=== PATIENT | male | born 1955 | race Caucasian/White ===

== ENCOUNTER → 2017-05-11 | Outpatient (CLI) | payer MEDICARE, OTHER ==
[~2017-05-11] MED LIST: 24HOUR ALLERGY10 MG; 24HOUR ALLERGY10 MG PO; ABILIFY2 MG PO; ALB/IPRATROPIUM/1 E1 INH; ALPRAZOLAM1 MG PO; AMLODIPINE BESYL5 MG PO; ASPIRIN81 M1 PO; ASPIRIN81 M2 PO; ASPIRINBUFF PO; ATARAX PO; CARDIZEM SR PO; CARTIA XT240 MG PO; CARVEDILOL3.125 MG PO; CELEXA PO; CIPRO PO; CITALOPRAM HBR40 MG PO; CLARITIN10 M3 PO; COREG3.125 MG PO; COREG6.25 MG PO; COUMADIN PO; CYCLOBENZAPRINE5 MG PO; DULOXETINE HCL20 MG PO; FENOFIBRATE67 MG PO; FLAGYL PO; HYDROCHLOROTHIA25 MG PO; HYDROCODONE-A1 UDTA4 PO; IMDUR-ER30 MG PO; IMDUR-ER60 MG PO; IMDUR30 MG PO; ISORDIL PO; ISOSORBIDE DINI30 MG PO; LEVAQUIN PO; LEXAPRO20 MG PO; LIPITOR20 MG PO; LISINOPRIL20 MG PO; LISINOPRIL30 MG PO; LORAZEPAM1 MG PO; LORTAB 10-3251 EACH PO; LORTAB 10-5001 EACH PO; LORTAB 7.5-3251 EACH PO; LORTAB 7.5-5001 TAB PO; MOTION SICKNESS25 M4 PO; NEURONTIN300 MG PO; NICOTINE TRANSD14 MG EXT; NITROGYLCERIN SUBLINGUAL; NORCO 7.5-3251 EACH PO; NORCO1 TAB 10/3 PO; NORVASC PO; ONDANSETRON HCL4 M1 PO; PAIN RELIEF325 MG PO; PLAVIX PO; PREDNISONE PO; PROTONIX PO; RANEXA500 MG PO; RANITIDINE HCL150 M1 PO; SINGULAIR PO; SPIRIVA18 MCG INH; SYMBICORT INH; VICODIN PO; XANAX1 MG PO; ZANTAC150 M1 PO; ZANTAC150 MG PO; ZESTRIL40 MG PO; ZOCOR PO
--- NOTE | ~2017-05-11 | EKG ---
PATIENT: FOZIA COTA UNIT #: [id number] Ventricular Rate: 68 BPM Atrial Rate: 68 BPM P-R Interval: 188 ms QRS Duration: 96 ms Q-T Interval: 376 ms QTC Calculation(Bezet): 399 ms P [place]: 41 degrees Calculated R [place]: -18 degrees Calculated T [place]: 61 degrees Diagnosis Line: Normal sinus rhythm Diagnosis Line: Normal ECG Diagnosis Line: When compared with ECG of 07-OCT-2016 17:44, Diagnosis Line: Premature supraventricular complexes are no longer Diagnosis Line: Present Diagnosis Line: Diagnosis Line: Confirmed by AIMEE DEL RIO MD ([id number]) on Diagnosis Line: 05/11/2017 10:10:46 PM INTERPRETING MD: JUSTUS
[2017-05-11 11:46] LABS: HEMATOCRIT 44.7 % (38.0-50.0); HEMOGLOBIN 14.4 gm/dL (13.0-16.0); MEAN CELL VOLUME 87.3 FL (83-96); MEAN CORPUSCULAR HEMOGLOBIN 28.2 PG (28-34); MEAN CORPUSCULAR HGB CONC 32.3 g/dL (30-36); MEAN PLATELET VOLUME 8.9 FL (6.5-11.5); RED BLOOD COUNT 5.12 X10e (3.90-5.60); RED CELL DISTRIBUTION WIDTH 15.7 % (11.0-15.5)
[2017-05-11 12:12] LABS: ALBUMIN SERUM 3.8 g/dL (3.5-5.0); BILIRUBIN,TOTAL 0.4 mg/dL (0.2-2.0); BUN/CREATININE RATIO 21.42; CALCIUM SERUM 9.1 mg/dL (8.4-10.2); CREATININE SERUM 0.7 mg/dL (0.6-1.4); GLOM FILT RATE Estimated 103.3 mL/min (>60); POTASSIUM 4.4 mmol/L (3.5-5.1); PROTEIN TOTAL SERUM 7.1 g/dL (6.0-8.3)
== END | disposition home or self-care (01) ==
LOC: CAMB 10:11 → EDSTATUS 15:00
PROVIDERS: Surgery
DX: Z01.818 Encounter for other preprocedural examination (principal); K43.9 Ventral hernia without obstruction or gangrene
CPT/HCPCS: 36415; 80053; 85027; 93005

== ENCOUNTER 2017-05-18 07:12 | Day surgery (SDC) | payer MEDICARE, OTHER | END 2017-05-18 12:39 | disposition home or self-care (01) | LOC: CSUR 07:12 → CPACUOF 10:03 → CSUR 10:03 | DX: K43.0 Incisional hernia with obstruction, without gangrene (principal); J44.9 Chronic obstructive pulmonary disease, unspecified; I10 Essential (primary) hypertension; M19.90 Unspecified osteoarthritis, unspecified site; M06.9 Rheumatoid arthritis, unspecified; E78.00 Pure hypercholesterolemia, unspecified; G47.30 Sleep apnea, unspecified; K21.9 Gastro-esophageal reflux disease without esophagitis; I25.2 Old myocardial infarction; F17.200 Nicotine dependence, unspecified, uncomplicated | CPT/HCPCS: C1781; J0131; J0330; J0690; J1170; J1885; J2250; J2405; J2710; J3010 ==

== ENCOUNTER 2017-05-19 13:13 | Inpatient (IN) | payer MEDICARE, OTHER ==
--- NOTE | ~2017-05-19 | CT2 ---
[facility] A Service of [facility] RADIOLOGY TEXT RESULTS PATIENT: FOZIA COTA LOCATION: [facility]04-23 : 59 UNIT #: [id number] AGE: [address]: Nilson Friend MD SEX: M ORDER DR: [id number] [facility] [address] [facility]. [place], [place] [address] [id number] I MR#: [id number] Acc #: [id number] NAME: FOZIA COTA. : 1955 SEX: M STUDY DATE/TIME: 05/19/2017 16:34 UNIT: [facility] ROOM: [facility] STUDY DESCRIPTION: CT Abd and Pelv W Cont Attending Physician: Nilson Friend Jr., M.D. Ordering Physician: Carol Oneal M.D. Primary Care Physician: Nolan Pace M.D. MEDICAL IMAGING REPORT This report is preliminary unless electronic signature is present EXAM CT abdomen and pelvis INDICATION Abdominal surgery, status post mesh placement. Cough. Fever. Severe abdominal pain for [address] of the abdomen and pelvis with 100 mL Isovue-370 IV contrast. Coronal and sagittal reconstructions were obtained. This CT exam was performed with one or more of the following radiation dose reduction techniques: automatic exposure control, adjustment of mA and/or kV according to patient size, and iterative reconstruction. COMPARISON CT abdomen and pelvis 01/14/2016. FINDINGS ABDOMEN: There is atelectasis in both lung bases. There is a large hiatal hernia containing majority the gastric fundus. This is unchanged. The solid abdominal organs have not significantly changed. There are a few benign renal cysts. The bowel is not dilated. The appendix is normal. There has been prior anterior abdominal wall hernia repair. There is some gas and intermediate density fluid within the superficial soft tissues not unexpected given the recent surgery. There is some diastasis of the rectus abdominis muscles, unchanged. Patient is status post right iliofemoral bypass graft. Bypass graft is [facility] A Service of [facility] RADIOLOGY TEXT RESULTS PATIENT: FOZIA COTA LOCATION: [facility]04-23 : [birth year] UNIT #: [id number] AGE: [address]: Nilson Friend MD SEX: M ORDER DR: patent. PELVIS: The bladder is significantly distended measuring up to 20 cm in length. This extends up near the umbilicus. Correlate for evidence of bladder outlet obstruction. No acute osseous abnormalities. 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 No femoral head collapse. IMPRESSION 1. Distended urinary bladder. Correlate for any evidence of a bladder outlet obstruction. 2. Air and fluid within the anterior abdominal wall. This is not unexpected given the recent abdominal wall surgery. 3. Atelectasis in both lung bases. Large hiatal hernia containing a majority of the gastric fundus is unchanged from the prior study. Dictated by... Ramon Turcios M.D. THIS IS AN ELECTRONICALLY VERIFIED REPORT Ramon Turcios M.D. at 05/20/2017 8:42 AM PAMELLA/milton TD: 05/20/2017 00:21 JOB #: [id number] MEDICAL IMAGING REPORT Page 1 of 1 COPY
--- NOTE | ~2017-05-19 | OR ---
Unit #: [id number] #: [id number] Patient: FOZIA COTA [id number] [address] [address] [id number] Kalina MR#: [id number] NAME: FOZIA COTA ROOM: 476 Date of Procedure: 05/18/2017 Admission Date: 05/19/2017 Surgeon: Alberto Torrez M.D. : 1955 Attending Physician: Nilson Friend Jr., M.D. Primary Care Physician: Nolan Pace M.D. OPERATIVE REPORT PREOPERATIVE DIAGNOSIS Incarcerated recurrent incisional hernia. POSTOPERATIVE DIAGNOSIS Incarcerated recurrent incisional hernia. PROCEDURE PERFORMED Laparoscopic ventral hernia repair of recurrent incarcerated incisional hernia with 8 x 10 Ventralight mesh. INFORMATION ASSURANCE ANALYST Tanvir Weller M.D. ANESTHESIA General endotracheal anesthesia. ESTIMATED BLOOD LOSS Minimal. IV FLUIDS 800 crystalloid. COMPLICATIONS None. INDICATIONS FOR PROCEDURE The patient is a 61-year-old gentleman with recurrent hernia. DESCRIPTION OF PROCEDURE The patient was taken to the operating theater and placed in supine position. General anesthesia was induced. The abdomen was prepped and draped. A 5-mm Optiview was placed into the right upper quadrant without difficulty. The abdomen was insufflated to 15 mmHg with CO2. Under direct vision, I placed a right lower quadrant 12 mm, left upper quadrant 5 mm, left lower quadrant 5 mm. General inspection of the abdomen revealed incarcerated hernia with multiple defects. This was reduced using a combination of blunt and sharp dissection. The defect had multiple areas of hernia. The entire hernia measuring at least 20 cm x 10 cm. I placed an 8 x 10 inch Ventralight mesh. This was held in place with single-stranded Vicryl sutures. This was then secured with a SorbaFix Tacker in circumferential pattern. This covered the defect by at least 5 cm in all circumference. Hemostasis was adequate. I removed the Unit #: [id number] #: [id number] Patient: FOZIA COTA ports under direct vision and closed the wounds with 4-0 Vicryl and cut the sutures at the skin level. The patient tolerated the procedure well sent to recovery room in good condition. Dictated by... Melba Azevedo/lara TD: 05/18/2017 20:42 JOB #: [id number] OPERATIVE REPORT Page 1 of 1 X Alberto Torrez MD PROCEDURE OPERATIVE NOTE
--- NOTE | ~2017-05-19 | CR72 ---
[facility] A Service of [facility] RADIOLOGY TEXT RESULTS PATIENT: FOZIA COTA LOCATION: [place] [address]- : [birth year] UNIT #: [id number] AGE: [address]: Nilson Friend MD SEX: M ORDER DR: [id number] [facility] [address] [facility]. [place], [place] [address] [id number] I MR#: [id number] Acc #: [id number] NAME: FOZIA COTA. : 1955 SEX: M STUDY DATE/TIME: 05/19/2017 14:54 UNIT: [facility] ROOM: [facility] STUDY DESCRIPTION: CR Chest Single View Portable Attending Physician: Nilson Friend Jr., M.D. Ordering Physician: Carol Oneal M.D. Primary Care Physician: Nolan Pace M.D. MEDICAL IMAGING REPORT This report is preliminary unless electronic signature is present EXAM Portable chest x-ray 05/19/2017 HISTORY Short of air. Fever. Duration since yesterday. Status post abdominal surgery. Short of air. Vomiting blood. TECHNIQUE AP left anterior oblique view of chest presented. COMPARISON STUDIES 04/28/2016. FINDINGS No acute-appearing bony abnormality. Mild cardiac enlargement, probably unchanged given obliquity. Lung volumes moderate. Right lung clear. Airspace disease at the left lung base concerning for pneumonia given the patient's stated history. Given history of hematemesis, consider possible aspiration. Some band-like densities at the left lung base, more likely atelectatic in nature. No definite pleural effusion and no pneumothorax. Followup to complete radiographic resolution is recommended. Dictated by... Alberto Guerin M.D. THIS IS AN ELECTRONICALLY VERIFIED REPORT Alberto Guerin M.D. at 05/20/2017 12:11 PM BILLY/javier TD: 05/19/2017 22:40 JOB #: [id number] [facility] A Service of [facility] RADIOLOGY TEXT RESULTS PATIENT: FOZIA COTA LOCATION: [facility] 476-01 : [birth year] UNIT #: [id number] AGE: [address]: Nilson Friend MD SEX: M ORDER DR: MEDICAL IMAGING REPORT Page 1 of 1 COPY
--- NOTE | ~2017-05-19 | DS ---
Unit #: [id number] #: [id number] Patient: FOZIA COTA [id number] [address] [address] [id number] I MR#: [id number] NAME: FOZIA COTA ROOM: 47 Age: 61 Sex: M Admission Date: 05/19/2017 : 1955 Discharge Date: 05/22/2017 Attending Physician: Nilson Friend Jr., M.D. Primary Care Physician: Nolan Pace M.D. DISCHARGE SUMMARY PRINCIPAL DIAGNOSIS Shortness of breath and urinary retention. CONSULTANTS 1. [facility]. 2. Dr. Millard. OPERATIONS/PROCEDURES None. DISCHARGE INSTRUCTIONS May shower. No lifting for two weeks. No driving x3 days. The patient has prescriptions for pain medication at home. May shower. Milk of magnesia as needed for constipation. Follow with Dr. Torrez next week. CHIEF COMPLAINT/HISTORY OF PRESENT ILLNESS The patient is a 61-year-old white male who is status post laparoscopic ventral hernia repair. He was admitted with shortness of breath. For complete history and physical, please refer to chart. HOSPITAL COURSE The patient was admitted and started on IV fluids and IV antibiotics. He was seen by the [facility] physicians as well as Dr. Millard of pulmonary medicine. He had significant diuresis. He was found to have some urinary retention and a Jay catheter was placed. He improved over the next several days and on day #3 was breathing well. He felt back to normal. His head was soft and minimally tender. His incisions were without infection. He was discharged home in satisfactory condition, to follow with Dr. Torrez in one week. Dictated by... Tanvir Weller M.D. SUKHI/valentin TD: 05/22/2017 12:47 JOB #: [id number] Unit #: [id number] #: [id number] Patient: FOZIA COTA DISCHARGE SUMMARY Page 1 of 1 X Tanvir Weller MD DISCHARGE SUMMARY
--- NOTE | ~2017-05-19 | EKG ---
PATIENT: FOZIA COTA UNIT #: [id number] Ventricular Rate: 82 BPM Atrial Rate: 82 BPM P-R Interval: 186 ms QRS Duration: 90 ms Q-T Interval: 322 ms QTC Calculation(Bezet): 376 ms P [place]: 19 degrees Calculated R [place]: -53 degrees Calculated T [place]: 24 degrees Diagnosis Line: Normal sinus rhythm Diagnosis Line: Left anterior fascicular block Diagnosis Line: Abnormal ECG Diagnosis Line: When compared with ECG of 11-MAY-2017 10:25, Diagnosis Line: No significant change was found Diagnosis Line: Confirmed by AIMEE DEL RIO MD ([id number]) on Diagnosis Line: 05/20/2017 10:57:19 AM INTERPRETING MD: JUSTUS
--- NOTE | ~2017-05-19 | HP ---
Unit #: [id number] #: [id number] Patient: FOZIA HANSON [id number] [address] [address] [id number] I MR#: [id number] NAME: FOZIA HANSON. ROOM: 476 Age: 61 Sex: M Admission Date: 05/19/2017 : 1955 Attending Physician: Nilson Friend Jr., M.D. Primary Care Physician: Nolan Pace M.D. HISTORY AND PHYSICAL Mr. Hanson is a 61-year-old white male who is less than 48 hours status post laparoscopic ventral hernia repair. It was a large hernia. It was due to previous abdominal operations that he had had with previous ventral hernia repair and ileofemoral bypass operation. He has significant problems related to atherosclerotic cardiovascular disease, abdominal aortic aneurysm in the past with congestive heart failure. He developed a cough and fever and was admitted for that evaluation. A CT scan obtained with bilateral atelectasis of his lungs with a large hiatal hernia. He was also noted to have a one pack per day smoking history. He has no alcohol history. Other past medical history issues are related to hypertension, chronic obstructive pulmonary disease, psychiatric issues. He has had hypercholesterolemia, depression, anxiety and has had multiple operations as noted. He has had nine stents placed in his heart. MEDICATIONS His medications at home include: 1. Plavix. 2. Imdur. 3. Lipitor. 4. Zantac. 5. Symbicort. 6. Singulair. 7. Spiriva. 8. Coreg. 9. Neurontin. 10. Lorazepam. 11. Lexapro. All of these are listed per nurse's notes. ALLERGIES He does have allergies to fish containing products. PHYSICAL EXAMINATION GENERAL: Cooperative, alert white male. VITAL SIGNS: Stable except his temperature is 102, most likely due to his atelectasis. ENT: Clear. No jaundice. CHEST: Scattered rales and rhonchi and congestion as noted. CARDIAC: Rhythm is regular. No murmurs. ABDOMEN: Slightly distended. Hernia incision is present. No bleeding, no infection. He has incisional tenderness but no evidence of any type of Unit #: [id number] #: [id number] Patient: FOZIA HANSON acute surgical abdomen on examination. Jay catheter was placed for urinary retention. EXTREMITIES: Full range of motion. 1-2+ peripheral pulses bilaterally. No edema. IMPRESSION 1. Congestion/atelectasis, status post laparoscopic hernia repair. 2. Multiple cardiovascular issues as noted with chronic obstructive pulmonary disease with a smoking history. 3. Large hiatal hernia. PLAN We will get pulmonary to see the patient and he is encouraged to cough and deep breathe. We will follow patient very closely. Dictated by Franklin Fournier M.D. BRIAN/valentin TD: 05/20/2017 07:38 JOB #: [id number] HISTORY AND PHYSICAL Page 1 of 1 X Franklin Fournier MD X HISTORY AND PHYSICAL
--- NOTE | ~2017-05-19 | CO ---
Unit #: [id number] #: [id number] Patient: FOZIA COTA [id number] [address] [address] [id number] I MR#: [id number] NAME: FOZIA COTA. ROOM: 476 Age: 61 Sex: M Admission Date: 05/19/2017 : 1955 Attending Physician: Nilson Friend Jr., M.D. Primary Care Physician: Nolan Pace M.D. Consultation Date: 05/20/2017 CONSULTATION REPORT REASON FOR CONSULT Atelectasis. HISTORY OF PRESENT ILLNESS This is a 61-year-old male who is well known to our service, who follows with Dr. Millard as an outpatient for COPD, who presented to the hospital with large hernia needing laparoscopic ventral hernia repair. Currently patient is postop day one. His main complaint is abdominal pain, mainly when coughing or taking a deep breath. He does not feel nauseated and there is no chest pain. Patient is on oxygen at home and he is on Symbicort and albuterol as needed. PAST MEDICAL HISTORY 1. Hypertension. 2. Hyperlipidemia. 3. COPD. 4. Chronic hypoxic respiratory failure. 5. Coronary artery disease. 6. GERD. 7. Depression. 8. Anxiety. PAST SURGICAL HISTORY 1. Laparoscopic hernia repair. 2. Esophageal dilation. 3. Right iliac femoral artery bypass graft in 2012. 4. Common bile duct stent placement and removal. 5. Repair of meniscus. 6. Knee surgery. HOME MEDICATION 1. Plavix. 2. Imdur. 3. Lipitor. 4. Symbicort. 5. Lortab. 6. Coreg. 7. Hydroxyzine. 8. Ranitidine. 9. Aspirin. Unit #: [id number] #: [id number] Patient: FOZIA COTA 10. Lisinopril. 11. Claritin. 12. Albuterol. 13. Singulair. 14. Spiriva. ALLERGIES Fish-containing products. SOCIAL HISTORY Patient lives with his . He smokes up to two packs per day. No history of alcohol or drug abuse. FAMILY HISTORY Hypertension. REVIEW OF SYSTEMS A 12-point review of systems was obtained and was negative except for what was mentioned in the HPI. PHYSICAL EXAMINATION GENERAL: The patient is awake, alert, in abdominal pain. VITAL SIGNS: Heart rate is 86, respiratory rate 23, O2 saturation 96. HEENT: Normocephalic and atraumatic. PERRLA. EOMI. NECK: Supple. No JVD. No lymphadenopathy. CHEST: Bilateral fine rhonchi mainly at the bases. HEART: S1, S2. No murmur, gallops or rubs. ABDOMEN: Soft but tender to gentle palpation. EXTREMITIES: No edema or cyanosis. SKIN: No rashes. ARTIFICIAL [employer]BLE [employer]: Awake, alert, oriented x3. No focal motor/sensory deficits. DIAGNOSTIC STUDIES LABORATORY: Creatinine 1.0, CO2 29, white blood count 9.4, platelets 142. IMAGING: Tests reviewed and noted by me. ASSESSMENT 1. Chronic hypoxic respiratory failure. 2. Atelectasis, postop related. 3. Chronic obstructive pulmonary disease. 4. Chronic anemia. 5. Smoking. PLAN 1. Will continue patient on bronchodilator as needed with scheduled one q.4 h. 2. Will add mucolytics and encourage out of bed to chair with aggressive pulmonary toilet including incentive spirometer. His incentive spirometer efforts were only up to 0.4 L. He was encouraged to increase using it every hour to two hours for 10 times each. 3. Will improve his pain management to avoid guarding and splinting. 4. IV hydration. 5. DVT prophylaxis. I would like to thank you for allowing me to be part of this patient's care. Unit #: [id number] #: [id number] Patient: FOZIA COTA Dictated by... Melba Caldwell TD: 05/20/2017 20:24 JOB #: [id number] CONSULTATION REPORT Page 1 of 1 X TANIKA JACOBS MD CONSULTATION REPORT
[2017-05-19 15:06] LABS: BASOPHIL# 0.1 X10e3 (0-0.3); BASOPHIL% 0.5 % (0-2.5); EOSINOPHIL# 0.1 X10e3 (0-0.7); EOSINOPHIL% 1.1 % (0.0-7.0); HEMATOCRIT 40.8 % (38.0-50.0); LYMPHOCYTE# 1.8 X10e3 (1.0-3.5); LYMPHOCYTE% 14.5 % (17.0-45.0); MEAN CELL VOLUME 88.5 FL (83-96); MEAN CORPUSCULAR HEMOGLOBIN 28.2 PG (28-34); MEAN CORPUSCULAR HGB CONC 31.8 g/dL (30-36); MEAN PLATELET VOLUME 8.8 FL (6.5-11.5); MONOCYTE# 0.9 X10e3 (0-1.0); MONOCYTE% 7.4 % (3.0-12.0); NEUTROPHIL# 9.4 X10e3 (1.5-7.1); NEUTROPHIL% 76.5 % (40-75); PLATELET COUNT 166 X10e3 (140-420); RED BLOOD COUNT 4.61 X10e (3.90-5.60); RED CELL DISTRIBUTION WIDTH 16.3 % (11.0-15.5); WHITE BLOOD COUNT 12.2 X10e3 (4.0-10.5)
[2017-05-19 15:07] LABS: DIFF IND NO
[2017-05-19 15:17] LABS: POC - CKMB <1.0 ng/mL (0.0-7.9); POC - TROPONIN <0.05 ng/mL (<=0.05)
[2017-05-19 15:21] LABS: PARTIAL THROMBOPLASTIN TIME 25.2 SECONDS (23.5-31.3); PROTHROMBIN TIME (PATIENT) 10.5 SECONDS (10.0-11.7)
[2017-05-19 15:35] LABS: ALBUMIN SERUM 3.3 g/dL (3.5-5.0); BILIRUBIN, DIRECT 0.1 mg/dL (0.0-0.2); BILIRUBIN,INDIRECT 0.6 mg/dL (0.0-0.9); BILIRUBIN,TOTAL 0.7 mg/dL (0.2-2.0); CALCIUM SERUM 8.2 mg/dL (8.4-10.2); CREATININE SERUM 1.1 mg/dL (0.6-1.4); GLOM FILT RATE Estimated 73.1 mL/min (>60); POTASSIUM 3.9 mmol/L (3.5-5.1); PROTEIN TOTAL SERUM 6.3 g/dL (6.0-8.3)
[2017-05-19 16:19] LABS: POC - CKMB <1.0 ng/mL (0.0-7.9); POC - TROPONIN <0.05 ng/mL (<=0.05)
[2017-05-19 17:46] LABS: URINE SOURCE CLEAN CATCH
[2017-05-19 17:50] LABS: URINE APPEARANCE CLEAR; URINE BILIRUBIN NEG (NEG); URINE BLOOD NEG (NEG); URINE COLOR YELLOW; URINE GLUCOSE NEG (NEG); URINE KETONE NEG (NEG); URINE LEUKOCYTE ESTERASE 1+ (NEG); URINE NITRATE NEG (NEG); URINE PROTEIN NEG (NEG); URINE UROBILINOGEN 0.2 MG/DL (NEG)
[2017-05-19 17:52] LABS: URINE BACTERIA AUWI NEG (NEGATIVE); URINE SQUAMOUS EPITHELIAL CELL OCC /[HPF]
[2017-05-19 17:53] LABS: CULTURE INDICATED? NO
[2017-05-20 04:06] LABS: BASOPHIL% 0.3 % (0-2.5); EOSINOPHIL# 0.1 X10e3 (0-0.7); EOSINOPHIL% 1.5 % (0.0-7.0); HEMATOCRIT 36.6 % (38.0-50.0); HEMOGLOBIN 11.7 gm/dL (13.0-16.0); LYMPHOCYTE# 1.6 X10e3 (1.0-3.5); MEAN CELL VOLUME 87.8 FL (83-96); MEAN CORPUSCULAR HEMOGLOBIN 28.1 PG (28-34); MEAN PLATELET VOLUME 8.6 FL (6.5-11.5); MONOCYTE# 0.9 X10e3 (0-1.0); MONOCYTE% 9.9 % (3.0-12.0); NEUTROPHIL# 6.7 X10e3 (1.5-7.1); NEUTROPHIL% 71.3 % (40-75); PLATELET COUNT 142 X10e3 (140-420); RED BLOOD COUNT 4.16 X10e (3.90-5.60); RED CELL DISTRIBUTION WIDTH 16.4 % (11.0-15.5); WHITE BLOOD COUNT 9.4 X10e3 (4.0-10.5)
[2017-05-20 04:07] LABS: DIFF IND NO
[2017-05-20 04:32] LABS: ALBUMIN SERUM 2.7 g/dL (3.5-5.0); BILIRUBIN,TOTAL 0.4 mg/dL (0.2-2.0); CALCIUM SERUM 7.5 mg/dL (8.4-10.2); POTASSIUM 3.7 mmol/L (3.5-5.1); PROTEIN TOTAL SERUM 5.7 g/dL (6.0-8.3)
[2017-05-22 03:23] LABS: HEMATOCRIT 34.7 % (38.0-50.0); HEMOGLOBIN 11.3 gm/dL (13.0-16.0); MEAN CORPUSCULAR HEMOGLOBIN 28.4 PG (28-34); MEAN CORPUSCULAR HGB CONC 32.7 g/dL (30-36); MEAN PLATELET VOLUME 8.4 FL (6.5-11.5); RED BLOOD COUNT 3.98 X10e (3.90-5.60); RED CELL DISTRIBUTION WIDTH 16.4 % (11.0-15.5); WHITE BLOOD COUNT 6.7 X10e3 (4.0-10.5)
[2017-05-22] MEDS ORDERED: SYMBICORT INH (10:45)
== END 2017-05-22 11:55 | disposition home or self-care (01) | DRG 982 ==
LOC: CED 13:13 → C4C 17:50 → CEDOF 17:50 → C4C 19:51 → CEDOF 19:51 → CED 19:51 → C4C 20:23 → CEDOF 20:23 → C4C 05-22 11:55
PROVIDERS: Emergency Medicine; Internal Medicine Pulmonary Disease; Surgery
PROC: 0WUF4JZ Supplement Abdominal Wall with Synthetic Substitute, Percutaneous Endoscopic Approach (ICD-10-PCS; principal; 2017-05-18)
DX: J95.89 Other postprocedural complications and disorders of respiratory system, not elsewhere classified (principal); J96.10 Chronic respiratory failure, unspecified whether with hypoxia or hypercapnia; K43.0 Incisional hernia with obstruction, without gangrene; J98.11 Atelectasis; K21.9 Gastro-esophageal reflux disease without esophagitis; J44.9 Chronic obstructive pulmonary disease, unspecified; I10 Essential (primary) hypertension; E78.00 Pure hypercholesterolemia, unspecified; I73.9 Peripheral vascular disease, unspecified; F41.9 Anxiety disorder, unspecified; F32.9 Major depressive disorder, single episode, unspecified; F17.210 Nicotine dependence, cigarettes, uncomplicated; Z79.82 Long term (current) use of aspirin; Z79.02 Long term (current) use of antithrombotics/antiplatelets; K44.9 Diaphragmatic hernia without obstruction or gangrene; I25.10 Atherosclerotic heart disease of native coronary artery without angina pectoris; Z82.49 Family history of ischemic heart disease and other diseases of the circulatory system; R33.9 Retention of urine, unspecified; Y83.9 Surgical procedure, unspecified as the cause of abnormal reaction of the patient, or of later complication, without mention of misadventure at the time of the procedure
CPT/HCPCS: 36415; 71010; 74177; 80048; 80053; 80076; 81003; 82308; 82553; 83605; 84484; 85025; 85027; 85610; 85730; 87040; 93005; 94640; 94760; 96365; 96367; 96375; 99285; C9113; J2270; J2405; J2543; J3260; J3370; Q9967

== ENCOUNTER → 2017-06-05 | Outpatient (CLI) | payer OTHER, MEDICARE ==
--- NOTE | ~2017-06-05 | XA226 ---
[facility] A Service of [facility] RADIOLOGY TEXT RESULTS PATIENT: FOZIA COTA LOCATION: [facility] : 59 UNIT #: [id number] AGE: [address]: Tanvir Weller MD SEX: M ORDER DR: [id number] [facility] [address] [place], [place] [address] [id number] O MR#: [id number] Acc #: [id number] NAME: FOZIA COTA : 1955 SEX: M STUDY DATE/TIME: 06/05/2017 13:37 UNIT: [facility] ROOM: STUDY DESCRIPTION: MITCH Maldonado EXAM ND Attending Physician: Tanvir Weller M.D. Referring Physician: Tanvir Weller M.D. Ordering Physician: Tanvir Weller M.D. Primary Care Physician: Nolan Pace M.D. MEDICAL IMAGING REPORT This report is preliminary unless electronic signature is present EXAM IV access for CT scan. CLINICAL HISTORY Contrast-enhanced CT scan is provided, unfortunately, attempts by the nursing staff to place an IV catheter were unsuccessful including attempts by IV therapy. Temporary venous access placement was requested. TECHNIQUE/FINDINGS Informed consent was obtained from the patient. A skin site was selected with ultrasound guidance, marked, sterilely prepped and draped and locally anesthetized. Real-time sterile ultrasound guidance was used to confirm vessel patency and guide venous access. A micropuncture needle was used to access a superficial right arm vein, a guidewire inserted and a 4-Azerbaijani vascular sheath inserted and fixed to the skin with a Tegaderm device. There were no complications and the patient tolerated the procedure well. IMPRESSION Successful ultrasound guided insertion of temporary IV access for contrast injection. Attempts by the nursing staff including IV therapy were unsuccessful in gaining IV access. Dictated by... Wallace Medrano M.D. THIS IS AN ELECTRONICALLY VERIFIED REPORT Wallace Medrano M.D. at 06/10/2017 10:06 AM DEBBIE/page [facility] A Service of [facility] RADIOLOGY TEXT RESULTS PATIENT: FOZIA COTA LOCATION: [facility] : 59 UNIT #: [id number] AGE: [address]: Tanvir Weller MD SEX: M ORDER DR: TD: 06/05/2017 19:19 JOB #: [id number] MEDICAL IMAGING REPORT Page 1 of 1 COPY
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
[2017-06-05 10:20] LABS: HEMATOCRIT 43.4 % (38.0-50.0); HEMOGLOBIN 14.1 gm/dL (13.0-16.0); MEAN CELL VOLUME 86.7 FL (83-96); MEAN CORPUSCULAR HEMOGLOBIN 28.2 PG (28-34); MEAN CORPUSCULAR HGB CONC 32.6 g/dL (30-36); MEAN PLATELET VOLUME 7.9 FL (6.5-11.5); RED CELL DISTRIBUTION WIDTH 16.2 % (11.0-15.5); WHITE BLOOD COUNT 9.1 X10e3 (4.0-10.5)
[2017-06-05 11:01] LABS: CALCIUM SERUM 9.8 mg/dL (8.4-10.2); CREATININE SERUM 1.1 mg/dL (0.6-1.4); GLOM FILT RATE Estimated 73.1 mL/min (>60); POTASSIUM 3.3 mmol/L (3.5-5.1)
[2017-06-05 11:26] LABS: POC - CREATININE 0.99 mg/dL (0.64-1.27); POC - GFR >60.0 mL/min (>60)
== END | disposition home or self-care (01) ==
LOC: CLAB 09:22 → CCAT 09:22
PROVIDERS: Surgery
DX: R10.9 Unspecified abdominal pain (principal); Z96.89 Presence of other specified functional implants; N28.1 Cyst of kidney, acquired; I77.811 Abdominal aortic ectasia; K40.90 Unilateral inguinal hernia, without obstruction or gangrene, not specified as recurrent
CPT/HCPCS: 36415; 74177; 76937; 80048; 82565; 85027; C1894; Q9967